=== PATIENT | female | born 2000 ===

== ENCOUNTER → 2022-01-28 | Outpatient (CLI) | LOC: LABNPT 15:47 | PROVIDERS: ATTEND Obstetrics & Gynecology | DX: Z34.01 Encounter for supervision of normal first pregnancy, first trimester (principal); Z3A.00 Weeks of gestation of pregnancy not specified | CPT/HCPCS: 86850; 86900; 86901 ==

== ENCOUNTER → 2022-03-23 | Outpatient (CLI) | payer BC ==
--- NOTE | 2022-03-23 16:47 | Diagnostic Imaging Report ---
INDICATION: survey. TECHNIQUE: Multiple real-time grayscale images were obtained over the gravid uterus. COMPARISON: None FINDINGS: There is a single live fetus in a cephalic presentation. heart rate was recorded at 133 bpm. Placenta is anterior. Amniotic fluid volume is normal. Cervical length is 3.3 cm. Placental tip to the internal cervical os is approximately 3.0 cm. survey shows kidneys, bladder and stomach to be unremarkable. brain is unremarkable. There is a four-chamber heart. There is a three-vessel cord with normal insertion. The spine is unremarkable. Biometrical measurements are as follows: Biparietal 4.68 cm, age 20 weeks 2 days. Head circumference 17.83 cm, age 20 weeks 3 days. Abdominal circumference 13.69 cm, age 19 weeks 1 days. Femur length 3.19 cm, age 20 weeks 0 days. Sonographic estimate age: 20 weeks 0 days. Sonographic estimated date of delivery: 08/10/2022. Estimated Weight: 302 gm (+/- 44 gm). LMP percentile: 19%. heart rate: 133 beats per minute. number: 1 of 1. IMPRESSION: Single live IUP 20 weeks 0 days gestational age. Estimated date of confinement sonographically is 08/10/2022. Dictated by: Dictated on workstation # [id number]
== END ==
LOC: RAD 09:40
PROVIDERS: ATTEND Nurse Practitioner Women's Health
DX: Z34.02 Encounter for supervision of normal first pregnancy, second trimester (principal); Z3A.20 20 weeks gestation of pregnancy
CPT/HCPCS: 76805

== ENCOUNTER 2022-08-03 14:26 | Inpatient (IN) | payer BC ==
[2022-08-03] VITALS (39 sets, daily range): BP systolic 91–132; BP diastolic 58–87
[~2022-08-03] VITALS: Ht 157.5 cm; Wt 61.9 kg
[2022-08-03] MEDS ORDERED: PNV11TAB5 PO (14:32)
[2022-08-03] MEDS ORDERED: MINERAL OIL 30 ML UDC TOP PRN (14:45)
[2022-08-03] MEDS ORDERED: AMPICILLIN FOR IV USE 2,000 MG in NS (IVPB) 50 ML IV SCH (15:00)
[2022-08-03] MEDS: D5 LR IV SOLUTION 1,000 ML IV SCH ×2 (15:16→22:14)
[2022-08-03 15:21] LABS: BASOPHILS % (AUTO) 0 % (0-10); EOSINOPHILS # (AUTO) 0.1 10^3/uL (0.0-0.3); EOSINOPHILS % (AUTO) 0 % (0-10); HEMATOCRIT 36 % (35-52); HEMOGLOBIN 11.8 g/dL (11.5-16.0); LYMPHOCYTES # (AUTO) 2.4 X 10^3 (1.0-4.0); LYMPHOCYTES % (AUTO) 19 % (12-44); MEAN CORPUSCULAR HEMOGLOBIN 28 pg (25-34); MEAN CORPUSCULAR HGB CONC 33 g/dL (32-36); MEAN CORPUSCULAR VOLUME 88 fL (80-99); MEAN PLATELET VOLUME 9.8 fL (9.0-12.2); MONOCYTES # (AUTO) 0.7 X 10^3 (0.0-1.0); MONOCYTES % (AUTO) 6 % (0-12); NEUTROPHILS # (AUTO) 9.3 X 10^3 (1.8-7.8); NEUTROPHILS % (AUTO) 74 % (42-75); PLATELET COUNT 320 10^3/uL (130-400); WHITE BLOOD COUNT 12.5 10^3/uL (4.3-11.0)
[2022-08-03 15:24] LABS: BILIRUBIN,URINE NEGATIVE (NEGATIVE); CLARITY,URINE CLEAR; COLOR,URINE YELLOW; GLUCOSE, URINE (UA) NEGATIVE (NEGATIVE); KETONES,URINE NEGATIVE (NEGATIVE); LEUKOCYTE ESTERASE ,URINE 1+ (NEGATIVE); NITRITE,URINE NEGATIVE (NEGATIVE); PROTEIN,URINE NEGATIVE (NEGATIVE)
[2022-08-03 15:35] LABS: BACTERIA,URINE NEGATIVE /HPF; SQUAMOUS EPITHELIAL CELL,UR 0-2 /HPF
--- NOTE | 2022-08-03 16:37 | History & Physical-OB ---
ABRAHAM CHOI 08/03/22 1637: OB - Chief Complaint & HPI Date/Time Date of Admission: Date of Admission: Aug 03, 2022 at 14:26 Date seen by a Provider: Aug 03, 2022 Time Seen by a Provider: 17:00 Chief Complaint/History OB-Reason for Admission/Chief: Rupture of Membranes Hx : 1 Hx Para: 0 Estimated Date of Conception: November 15, 2021 Expected Date of Delivery: Aug 09, 2022 Gestational Age in Weeks: 39 Gestational Age in Days: 1 Admission Nurse Assessment Rev: Yes Allergies and Home Medications Allergies Coded Allergies: No Known Drug Allergies (Unverified , 08/03/22) Patient Home Medication List Home Medication List Reviewed: Yes Rqi883/FA/Omega3/Dha/Fish Oil ( Gummies) 400 Mcg-32.5 Mg (25 Mg-7.5 Mg) Tab.chew, 1 EACH PO DAILY, (Reported) Entered as Reported by: ESTHER PLUNKETT on 08/03/221431 Last Action: New Order OB - History Hx of Present Care: Yes Ultrasounds: Normal mid trimester US Obstetrical Complications: None Medical Complications: None Information Induced Hypertension: No Maternal Gestational Diabetes: No Hemorrhage: No Patient Past Medical History Patient denies any past medical history. Only previous surgery was wisdom teeth removal. Social History/Family History Alcohol Use: Denies Use Recreational Drug Use: No Smoking Cessation: Never smoker 2nd Hand Smoke Exposure: No Immunizations Influenza Vaccine Up-to-Date: No; Not Current Hepatitis A: Yes Hepatitis B: Yes Rubella: immune RPR/VDRL: Negative GBS Status: Positive HBsAG: Negative OB - Admission Exam Physical Exam Vitals: Vital Signs 08/03/22 08/03/22 14:30 15:30 Temp 36.5 Pulse 117 Resp 18 B/P (MAP) 119/78 (92) Pulse Ox 98 O2 Delivery Room Air HEENT: Oropharynx Normal Heart: Rhythm Normal Lungs: Clear Abdomen: Non tender Extremities: Normal Cervical Dilatation: 3cm Effacement: 50% Station: -3 Membranes: Ruptured Amniotic Fluid: Thin Meconium Heart Rate: 130's Accelerations: Accelerations Present Decelerations: No Decelerations Short Term Variability: Present Prison Variability: Average (6-25) Contractions on Admission: None Labs Laboratory Tests Test 08/03/22 14:20 08/03/22 14:45 Range/Units Urine Color YELLOW Urine Clarity CLEAR Urine pH 6.0 5-9 Urine Specific [place] 1.010 L 1.016-1.022 Urine Protein NEGATIVE NEGATIVE Urine Glucose (UA) NEGATIVE NEGATIVE Urine Ketones NEGATIVE NEGATIVE Urine Nitrite NEGATIVE NEGATIVE Urine Bilirubin NEGATIVE NEGATIVE Urine Urobilinogen 0.2 < = 1.0 MG/DL Urine Leukocyte Esterase 1+ H NEGATIVE Urine RBC (Auto) 3+ H NEGATIVE Urine RBC 10-25 H /HPF Urine WBC NONE /HPF Urine Squamous Epithelial Cells 0-2 /HPF Urine Renal Epithelial Cells NONE /HPF Urine Crystals NONE /LPF Urine Bacteria NEGATIVE /HPF Urine Casts NONE /LPF Urine Mucus NEGATIVE /LPF Urine Culture Indicated NO White Blood Count 12.5 H 4.3-11.0 10^3/uL Red Blood Count 4.15 3.80-5.11 10^6/uL Hemoglobin 11.8 11.5-16.0 g/dL Hematocrit 36 35-52 % Mean Corpuscular Volume 88 80-99 fL Mean Corpuscular Hemoglobin 28 25-34 pg Mean Corpuscular Hemoglobin Concent 33 32-36 g/dL Red Cell Distribution Width 13.4 10.0-14.5 % Platelet Count 320 130-400 10^3/uL Mean Platelet Volume 9.8 9.0-12.2 fL Immature Granulocyte % (Auto) 1 % Neutrophils (%) (Auto) 74 42-75 % Lymphocytes (%) (Auto) 19 12-44 % Monocytes (%) (Auto) 6 0-12 % Eosinophils (%) (Auto) 0 0-10 % Basophils (%) (Auto) 0 0-10 % Neutrophils # (Auto) 9.3 H 1.8-7.8 X 10^3 Lymphocytes # (Auto) 2.4 1.0-4.0 X 10^3 Monocytes # (Auto) 0.7 0.0-1.0 X 10^3 Eosinophils # (Auto) 0.1 0.0-0.3 10^3/uL Basophils # (Auto) 0.0 0.0-0.1 10^3/uL Immature Granulocyte # (Auto) 0.1 0.0-0.1 10^3/uL OB - Assessment/Plan/Diagnosis Assessment Assessment: rupture of membranes Admission Dx Dena is a 21yo F at 39w1d that presented to the hospital today with ruptured membranes. She has been having clear vaginal discharge the past few days and today during a visit her membranes ruptured. The patient immediately went to the hospital after leaving her visit. The patient was awake and resting in bed at the beginning of the interview. She denies having contractions. Says she has a tight feeling in her upper abdomen that is constant but not painful. She has continued to have clear blood tinged fluid like discharge since her membranes ruptured. Admission Status: Observation Plan Plan: Expectant Management Other Plan Patient is currently receiving IV ampicillin due to the patient being GBS positive. Will continue to monitor the patient's progress with cervical checks SAM VELEZ DO 08/04/22 0413: Allergies and Home Medications Allergies Coded Allergies: No Known Drug Allergies (Unverified , 08/03/22) Patient Home Medication List Lov434/FA/Omega3/Dha/Fish Oil ( Gummies) 400 Mcg-32.5 Mg (25 Mg-7.5 Mg) Tab.chew, 1 EACH PO DAILY, (Reported) Entered as Reported by: ESTHER PLUNKETT on 08/03/22 2672 Last Action: New Order OB - Assessment/Plan/Diagnosis Plan Other Plan Verification and Attestation of Medical Student E/M Service A medical student performed and documented this service in my presence. I reviewed and verified all information documented by the medical student and made modifications to such information, when appropriate. I personally performed the physical exam and medical decision making. Sam Velez, Aug 04, 2022,04:13 ABRAHAM CHOI Aug 03, 2022 16:37 SAM VELEZ DO Aug 04, 2022 04:13
[2022-08-03] MEDS: AMPICILLIN FOR IV USE 1,000 MG in NS (IVPB) 50 ML IV SCH ×2 (19:10→23:08)
[2022-08-03] MEDS ORDERED: OXYTOCIN PRE-MIX DRIP 500 ML IV ONE (20:17)
[2022-08-03] MEDS: OXYTOCIN PRE-MIX DRIP 500 ML IV SCH (20:25)
[2022-08-03] MEDS ORDERED: fentaNYL 2 mcg/ml BUPIVA 0.125 100 ML IV SCH (20:30)
[2022-08-03] MEDS ORDERED: CATHETER FLUSH 10 ML SYR IV PRN (20:30)
[2022-08-03] MEDS ORDERED: NALOXONE 0.4 MG/ML 1 ML (NARCAN) VIAL IV PRN ×2 (20:30→22:00)
[2022-08-03] MEDS ORDERED: LACTATED RINGERS 1,000 ML IV ONE (20:30)
[2022-08-03] MEDS ORDERED: fentaNYL 2 mcg/ml BUPIVA 0.125 100 ML ONE (20:44)
[2022-08-03] MEDS ORDERED: BUPIVACAINE 0.25% 30 ML (SENSORCAINE) VIAL ONE (21:22)
[2022-08-03] MEDS ORDERED: fentaNYL INJ 100 MCG/2 ML AMP ONE (21:22)
[2022-08-03] MEDS ORDERED: LACTATED RINGERS 1,000 ML IV SCH (22:00)
[2022-08-03] MEDS ORDERED: fentaNYL 2 mcg/ml BUPIVA 0.125 100 ML EPI SCH (22:00)
[2022-08-03] MEDS ORDERED: CATHETER FLUSH 10 ML SYR IV SCH (22:00)
[2022-08-03] MEDS ORDERED: diphenhydrAMINE 50 MG/ML INJ (BENADRYL) IV PRN (22:00)
[2022-08-03] MEDS ORDERED: ONDANSETRON 4 MG/2 ML (SDV) Z0FRAN IV PRN (22:00)
[2022-08-04] VITALS (24 sets, daily range): BP systolic 98–248; BP diastolic 57–146
[2022-08-04] MEDS: AMPICILLIN FOR IV USE 1,000 MG in NS (IVPB) 50 ML IV SCH (03:08)
[2022-08-04] MEDS ORDERED: LIDOCAINE 1% INJ 10 ML VIAL ONE (03:33)
[2022-08-04] MEDS: OXYTOCIN PRE-MIX DRIP 500 ML IV SCH ×3 (03:49→04:24)
--- NOTE | 2022-08-04 04:19 | OB Labor & Delivery Record ---
L&D History Date of Service Date of Service: Aug 04, 2022 History Expected Date of Delivery: Aug 09, 2022 Gestational Age in Weeks: 39 Hx : 1 Hx Para: 0 Complications Events: Routine care Operative Indications (Cesarea: N/A-Vaginal Delivery Intrapartal Events: None L&D Stage1 Stage One Onset of Labor - Date: Aug 04, 2022 Monitors and Tracing Monitor Mode: External Heart Rate: 135 Monitor Accelerations: Uniform Monitor Decelerations: Variable Station: -1 Mcfp Variability: Average (6-10) Short Term Variability: Present Presentation: Vertex Vital Signs VS - Last 72 Hours, by Label 08/03/22 08/03/22 08/03/22 08/03/22 14:20 14:30 15:30 16:00 Temp 36.6 36.6 36.5 Pulse 127 127 117 105 Resp 18 18 18 18 B/P (MAP) 130/83 (99) 119/78 (92) 118/80 (93) Pulse Ox 98 98 O2 Delivery Room Air Room Air Room Air Room Air 08/03/22 08/03/22 08/03/22 08/03/22 16:30 17:00 17:30 18:00 Temp 36.6 Pulse 105 102 102 100 Resp 18 18 18 18 B/P (MAP) 103/77 (86) 119/81 (94) 113/77 (89) 112/73 (86) Pulse Ox 98 98 96 O2 Delivery Room Air Room Air Room Air Room Air 08/03/22 08/03/22 08/03/22 08/03/22 18:30 19:00 19:10 19:30 Temp 36.3 36.2 Pulse 96 98 98 Resp 18 18 18 B/P (MAP) 119/79 (92) 113/75 (88) 116/74 (88) O2 Delivery Room Air Room Air Room Air 08/03/22 08/03/22 08/03/22 08/03/22 20:00 20:30 20:50 20:58 Temp 36.4 Pulse 91 88 100 B/P (MAP) 110/76 (87) 122/79 (93) 120/78 (92) O2 Delivery Room Air Room Air Room Air 08/03/22 08/03/22 08/03/22 08/03/22 21:25 21:30 21:33 21:36 Pulse 109 111 114 108 B/P (MAP) 121/81 (94) 125/87 (100) 132/86 (101) 127/85 (99) Pulse Ox 100 100 100 98 O2 Delivery Room Air Room Air Room Air Room Air 08/03/22 08/03/22 08/03/22 08/03/22 21:39 21:42 21:45 21:48 Pulse 111 107 103 106 B/P (MAP) 121/75 (90) 124/77 (93) 112/81 (91) 111/80 (90) Pulse Ox 98 97 98 O2 Delivery Room Air Room Air Room Air Room Air 08/03/22 08/03/22 08/03/22 08/03/22 21:51 21:52 21:55 21:58 Pulse 101 101 100 104 B/P (MAP) 115/83 (94) 119/80 (93) 120/81 (94) 118/79 (92) Pulse Ox 98 98 O2 Delivery Room Air Room Air Room Air Room Air 08/03/22 08/03/22 08/03/22 08/03/22 22:03 22:06 22:08 22:09 Pulse 110 92 101 99 B/P (MAP) 91/58 (69) 102/65 (77) 109/73 (85) Pulse Ox 98 99 O2 Delivery Room Air Room Air Room Air Room Air 08/03/22 08/03/22 08/03/22 08/03/22 22:11 22:24 22:28 22:34 Pulse 104 107 95 96 B/P (MAP) 110/67 (81) 99/63 (75) 105/69 (81) 106/71 (83) Pulse Ox 99 100 100 99 O2 Delivery Room Air Room Air Room Air Room Air 08/03/22 08/03/22 08/03/22 08/03/22 22:40 22:43 22:49 22:54 Pulse 100 103 116 111 B/P (MAP) 107/69 (82) 103/67 (79) 99/67 (78) Pulse Ox 100 100 O2 Delivery Room Air Room Air Room Air Room Air 08/03/22 08/03/22 08/03/22 08/03/22 23:08 23:20 23:35 23:51 Temp 36.2 Pulse 97 101 127 Resp 18 16 B/P (MAP) 131/74 (93) 124/71 (88) 129/78 (95) 08/04/22 08/04/22 08/04/22 08/04/22 00:05 00:20 00:37 00:51 Pulse 94 100 110 115 B/P (MAP) 100/59 (73) 98/57 (71) 111/76 (88) 127/72 (90) 08/04/22 08/04/22 08/04/22 08/04/22 01:06 01:21 01:32 01:39 Pulse 99 96 97 120 B/P (MAP) 110/71 (84) 117/79 (92) Pulse Ox 100 100 O2 Delivery Room Air Room Air Room Air 08/04/22 08/04/22 08/04/22 01:44 01:51 02:06 Temp 36.4 Pulse 121 122 Resp 22 B/P (MAP) 110/80 (90) 120/84 (96) Pulse Ox 100 99 O2 Delivery Room Air Room Air Rupture of Membranes Spontaneous Ruture of Membrane: Yes Amniotic Membrane Rupture Time: 1400 Amniotic Membrane Fluid Desc.: Clear Vaginal Bleeding Description: Normal Show Induction/Anesthesia Epidural Cath Placement - Time: 2137 Progress/Notes Patient sent from office due to SROM in office. She arrived and received GBS prophylaxis antibiotics x 2 doses at which point augmentation was started using pitocin due to no discomfort from patient and no cervical change. She received an epidural and rapidly progressed to complete and + 2 station. L&D Stage2 Stage Two Stage II Date: Aug 04, 2022 Monitors and Tracing Monitor Mode: External Heart Rate: 135 Monitor Accelerations: None Monitor Decelerations: Prolonged [place] Variability: Average (6-10) Short Term Variability: Present Position: Right Occiput Anterior Presentation: Vertex Cord Descript/Complications Cord Vessel Description: 3 Vessels Complications Patient heart tracing not recovering between contraction, due to this delivery was expeditied using vacuum extractor. RML is done, kiwi is placed on flexion point with next maternal push 500mm Hg applied in suction by the hand piece, head is delivered over RML with gentle extension. After head and anterior shoulder delivered True knot in the cord was noted. Delivery Type Delivery Method: Low Vacuum Extraction Anterior Shoulder: Right Episiotomy/Perineal Laceration Laceraction(s)/Extensions: Yes Episiotomy Description: Right Mediolateral Degree (describe repair) RML repaired using 3-0 rapide and 2-0 vicryl suture in usual fashion. Condition of Infant Delivery 1 minute Comment: 9 5 minute Comment: 9 Notes Live female weight 6lbs 6oz Condition of Infant Condition of Infant: Living Exam: No Observed Abnormalities Resuscitation Resuscitation: N/A - Spontaneous Resp L&D Stage3 Stage Three Stage III Date: Aug 04, 2022 Pictocin Pitocin ml/hr: 4 Pitocin Administration Comment: 30 mu wide open after delivery of placenta Placenta Delivery Placenta Delivery: Spontaneous Delivery Summary Summary Estimated blood loss (mL): 300 Attending at delivery: Jt Velez DO Condition of Delivery Examined: Cervix Examined, Uterus Explored Post Hemorrhage: No Condition of Mother stable Condition of (s) stable JT VELEZ DO Aug 04, 2022 04:19
[2022-08-04] MEDS ORDERED: HYDROcodone/APAP 5 MG/325 MG (LORTAB) TAB PO PRN (04:30)
[2022-08-04] MEDS ORDERED: DIBUCAINE 1% OINTMENT 30 GM TUBE TOP PRN (04:30)
[2022-08-04] MEDS ORDERED: MEASLES,MUMPS,RUBELLA 1 EA INJ SQ ONE (04:30)
[2022-08-04] MEDS ORDERED: LIDOCAINE 1% INJ 10 ML VIAL INJ ONE ×2 (04:30)
[2022-08-04] MEDS ORDERED: BENZOCAINE/MENTHOL (DERMOPLAST) 56 ML CAN TP PRN (04:30)
[2022-08-04] MEDS ORDERED: NALOXONE 0.4 MG/ML 1 ML (NARCAN) VIAL IV PRN (04:30)
[2022-08-04] MEDS ORDERED: WITCH HAZEL(TUCKS) 40 EA JAR TOP PRN (04:30)
[2022-08-04] MEDS ORDERED: TETANUS,DIPTH,PERTUSS P/F (BOOSTRIX) 0.5 ML VIAL IM ONE (04:30)
[2022-08-04] MEDS: IBUPROFEN 600 MG (MOTRIN) TAB PO SCH ×3 (05:52→18:48)
[2022-08-04] MEDS ORDERED: CATHETER FLUSH 10 ML SYR IV SCH (06:00)
[2022-08-04] MEDS: DOCUSATE SODIUM 100 MG (COLACE) CAP PO SCH ×2 (08:23→21:57)
[2022-08-04] MEDS: FERROUS SULF 325 MG (IRON) TAB PO SCH (08:23)
[2022-08-04] MEDS: PRENATAL VITAMIN 1 EA TAB PO SCH (08:23)
--- NOTE | 2022-08-04 12:06 | Anesthesia-Regional Post-Op ---
Regional Patient Condition Mental Status: Alert, Oriented x3 Circulation: Same as Pre-Op Headache: Absent Sensation: Full Recovery Motor Block: Absent Post Op Complications Complications None Follow Up Care/Instructions Patient Instructions None needed. Anesthesia/Patient Condition Patient is doing well, no complaints, stable vital signs, no apparent adverse anesthesia problems. No complications reported per nursing. CLYDE WATERMAN CRNA Aug 04, 2022 12:06
[2022-08-05] MEDS: IBUPROFEN 600 MG (MOTRIN) TAB PO SCH ×2 (00:35→06:02)
[2022-08-05 00:36] VITALS: BP 126/78
[2022-08-05 04:28] VITALS: BP 102/58
[2022-08-05 06:57] LABS: BASOPHILS # (AUTO) 0.1 10^3/uL (0.0-0.1); BASOPHILS % (AUTO) 0 % (0-10); EOSINOPHILS # (AUTO) 0.1 10^3/uL (0.0-0.3); EOSINOPHILS % (AUTO) 1 % (0-10); HEMATOCRIT 35 % (35-52); HEMOGLOBIN 11.1 g/dL (11.5-16.0); LYMPHOCYTES % (AUTO) 19 % (12-44); MEAN CORPUSCULAR HEMOGLOBIN 29 pg (25-34); MEAN CORPUSCULAR HGB CONC 32 g/dL (32-36); MEAN CORPUSCULAR VOLUME 90 fL (80-99); MEAN PLATELET VOLUME 9.2 fL (9.0-12.2); MONOCYTES # (AUTO) 0.6 10^3/uL (0.0-1.0); MONOCYTES % (AUTO) 4 % (0-12); NEUTROPHILS # (AUTO) 11.9 10^3/uL (1.8-7.8); NEUTROPHILS % (AUTO) 76 % (42-75); PLATELET COUNT 271 10^3/uL (130-400); WHITE BLOOD COUNT 15.8 10^3/uL (4.3-11.0)
--- NOTE | 2022-08-05 07:30 | Postpartum Progress Note ---
Note Note Day # 1 Subjective: Patient is without complaints. Ambulating, voiding. Tolerating a regular diet without nausea or vomiting. Normal lochia. Pain is well controlled with oral pain medications. Objective: Physical Exam: General - Alert and oriented, no apparent distress Abdomen - Soft, appropriately tender to palpation, non-distended, fundus firm at umbilicus Extremities - no edema, negative Milka's bilaterally Assessment: PPD VAVD day 1 Acute blood loss anemia Plan: Routine care. Encourage breast feeding. Encourage ambulation. Ferrous sulfate supplementation. Plan for discharge today Vitals - Labs Vital Signs - I&O Vital Signs Date Time Temp Pulse Resp B/P (MAP) Pulse Ox O2 Delivery O2 Flow Rate FiO2 08/05/22 04:28 35.7 81 18 102/58 (73) 98 Room Air 08/05/22 00:36 36.0 94 18 126/78 (94) 100 Room Air 08/04/22 21:57 36.2 91 18 107/66 (80) 97 Room Air 08/04/22 15:58 36.2 82 18 118/69 (85) 96 Room Air 08/04/22 12:30 36.4 78 18 119/80 (93) 97 Room Air 08/04/22 08:15 36.4 80 18 112/69 (83) 97 Room Air Labs Laboratory Tests 08/05/22 06:49: White Blood Count 15.8H, Red Blood Count 3.90, Hemoglobin 11.1L, Hematocrit 35, Mean Corpuscular Volume 90, Mean Corpuscular Hemoglobin 29, Mean Corpuscular Hemoglobin Concent 32, Red Cell Distribution Width 13.8, Platelet Count 271, Mean Platelet Volume 9.2, Immature Granulocyte % (Auto) 1, Neutrophils (%) (Auto) 76H, Lymphocytes (%) (Auto) 19, Monocytes (%) (Auto) 4, Eosinophils (%) (Auto) 1, Basophils (%) (Auto) 0, Neutrophils # (Auto) 11.9H, Lymphocytes # (Auto) 3.0, Monocytes # (Auto) 0.6, Eosinophils # (Auto) 0.1, Basophils # (Auto) 0.1, Immature Granulocyte # (Auto) 0.1 JT VELEZ DO Aug 05, 2022 07:30
--- NOTE | 2022-08-05 07:38 | Discharge Inst-Women's Service ---
Discharge Inst-Women's Serv Depart Medication/Instructions New, Converted or Re-Newed RX: Transmitted to Pharmacy Final Diagnosis PPD 1 VAVD Problems Reviewed?: Yes Consults/Follow Up Additional Follow Up: Yes Orders/Referrals Dr. Velez in 6 weeks Activity Activity: Activity as Tolerated NO SMOKING: NO SMOKING Nothing Inside Vagina: No Douching, No Laureles, No Tampons Diet Discharge Diet: No Restrictions Symptoms to Report to : Bleeding Excessive, Pain Increased, Fever Over 101 Degrees F, Vaginal Bleeding Increase, Questions/Concerns For Any Problems or Questions: Contact Your Physician JT VELEZ DO Aug 05, 2022 07:38
[2022-08-05] MEDS ORDERED: ACHD5005 PO (07:39)
[2022-08-05] MEDS ORDERED: IBUP-844 PO (07:39)
[2022-08-05] MEDS ORDERED: DOCU100C37 PO (07:39)
[2022-08-05] MEDS: DOCUSATE SODIUM 100 MG (COLACE) CAP PO SCH (08:23)
[2022-08-05] MEDS: FERROUS SULF 325 MG (IRON) TAB PO SCH (08:23)
[2022-08-05] MEDS: PRENATAL VITAMIN 1 EA TAB PO SCH (08:23)
[2022-08-05 09:25] VITALS: BP 97/60
== END 2022-08-05 12:00 | disposition home or self-care (01) | DRG 806 ==
LOC: LDRP 14:26
PROVIDERS: ADMIT Obstetrics & Gynecology; ATTEND Obstetrics & Gynecology
PROC: 10D07Z6 Extraction of Products of Conception, Vacuum, Via Natural or Artificial Opening (ICD-10-PCS; principal; 2022-08-04)
PROC: 0W8NXZZ Division of Female Perineum, External Approach (ICD-10-PCS; 2022-08-04)
DX: O99.824 Streptococcus B carrier state complicating childbirth (principal); D62 Acute posthemorrhagic anemia; Z37.0 Single live birth; O90.81 Anemia of the puerperium; Z3A.39 39 weeks gestation of pregnancy
CPT/HCPCS: 36415; 81000; 85025; 86780; 86850; 86900; 86901